=== PATIENT | female | born 1950 | race Caucasian/White ===

== ENCOUNTER 2017-10-18 08:08 | Day surgery (SDC) | payer MEDICARE, OTHER ==
[~2017-10-18 08:08] MED LIST: Metoclopramide 10 MG/2 ML SDV IV PRN; Sodium Chloride 0.9% 1,000 ML IV SCH; Sodium Chloride 0.9% 10 ML Syringe FLUSH PRN
[2017-10-18] MEDS ORDERED: Propofol 200 MG/20 ML SDV ONE (09:50)
--- NOTE | 2017-10-18 15:15 | OR ---
DATE OF OPERATION: 10/18/2017 PREOPERATIVE DIAGNOSIS: Surveillance colonoscopy. POSTOPERATIVE DIAGNOSIS: Normal colonoscopy. OPERATION: Surveillance colonoscopy. COMPLICATIONS: None. DRAINS: None. SPECIMENS: None. ESTIMATED BLOOD LOSS: Zero. ANESTHESIA: General propofol anesthesia. INDICATION: Ms. Nails is a 66-year-old female who has a prior history of polyps and has been receiving five years colonoscopies. She is here for surveillance. The above-mentioned procedure was explained and the risks, benefits, complications were explained. Patient understood and agreed and was brought to the operating room. DESCRIPTION OF PROCEDURE: The patient was brought to the operating room, placed in the left lateral decubitus position on the operating room table. Satisfactory general propofol anesthesia was administered. We began by performing a rectal examination, was within normal limits. I then placed the endoscope by finger introduction into the rectum and advanced this to the level of the cecum, this was identified by the appendiceal orifice, the ileocecal valve and the cecal strap. Next, careful evaluation of mucosa was performed on withdrawal. There were no telangiectasias, no polyps, no neoplastic growths, or diverticula. Retroflexion was then performed in the rectum which revealed no significant findings. The colon was decompressed and the endoscope withdrawn. Patient tolerated the procedure well. There were no complications. Instrument count was correct. The patient was woken in the OR and taken to the PACU for recovery. Recommend followup colonoscopy in 5- 10 years. PIERRE /[id number]
== END 2017-10-18 11:55 | disposition home or self-care (01) ==
LOC: LB.SDS 08:08
PROVIDERS: ATTEND Surgery
DX: Z12.11 Encounter for screening for malignant neoplasm of colon (principal); I10 Essential (primary) hypertension; E11.9 Type 2 diabetes mellitus without complications; E78.5 Hyperlipidemia, unspecified; Z88.8 Allergy status to other drugs, medicaments and biological substances; Z79.82 Long term (current) use of aspirin; Z79.899 Other long term (current) drug therapy; Z79.84 Long term (current) use of oral hypoglycemic drugs
CPT/HCPCS: 82962; G0121; J2704; J7040

== ENCOUNTER → 2019-10-19 | Outpatient (CLI) | payer MEDICARE, OTHER | LOC: LB.DIAB 16:13 | PROVIDERS: ATTEND Family Medicine | DX: E11.9 Type 2 diabetes mellitus without complications (principal); E78.5 Hyperlipidemia, unspecified | CPT/HCPCS: G0108 ×3 ==